=== PATIENT | female | born 1995 | race Two or more races ===

== ENCOUNTER 2025-01-11 20:01 | Emergency (ER) | payer OTHER ==
[~2025-01-11] VITALS: Ht 170.2 cm; Wt 68.0 kg
[2025-01-11] MEDS ORDERED: DUI500 PO (21:45)
[2025-01-11] MEDS ORDERED: TRIPLE ANTIBI28.4 G3 TOP (21:45)
== END 2025-01-11 23:09 | disposition home or self-care (01) ==
LOC: ER 20:01
DX: L92.9 Granulomatous disorder of the skin and subcutaneous tissue, unspecified (principal)